=== PATIENT | male | born 1990 | race Caucasian/White ===

== ENCOUNTER 2018-06-26 23:57 | Emergency (ER) | payer OTHER ==
[~2018-06-26] VITALS: Ht 195.6 cm; Wt 122.7 kg
[2018-06-27] MEDS ORDERED: proparacaine 0.5% ophthalmic drops 15ml EACHEYE ONE (01:00)
[2018-06-27] MEDS ORDERED: erythromycin ophthalmic ointment 1gm tube LEFTEYE ONE (01:45)
[2018-06-27] MEDS ORDERED: ibuprofen tablet 400 MG TABLET PO ONE (01:45)
[2018-06-27 02:20] VITALS: BP 132/89
== END 2018-06-27 02:24 | disposition home or self-care (01) ==
LOC: ER 23:58
DX: T15.02XA Foreign body in cornea, left eye, initial encounter (principal); X58.XXXA Exposure to other specified factors, initial encounter; Y93.89 Activity, other specified; Y92.89 Other specified places as the place of occurrence of the external cause; Y99.8 Other external cause status
CPT/HCPCS: 65222; 99283; 99284